=== PATIENT | male | born 1985 | race Hispanic/Latino ===

== ENCOUNTER 2018-08-06 01:01 | Emergency (ER) | payer SELFPAY ==
[2018-08-06 01:15] VITALS: BP 144/95
--- NOTE | 2018-08-06 02:13 | XRay Report ---
PROCEDURE: XR FOOT 2V RT TECHNIQUE: Right foot radiographs, AP and lateral views. HISTORY: pain/swelling COMPARISONS: None . FINDINGS: Fracture (s) and/or Dislocation(s): None . Alignment: Normal . Joint space(s): Normal . Soft tissues: Normal . Bone mineralization: Normal . Foreign bodies: None . Calcaneal spurring: None . IMPRESSION: Normal Examination . This document is electronically signed by Aime Morrow MD., August 06 2018 02:11:26 AM ET
--- NOTE | 2018-08-06 02:14 | XRay Report ---
PROCEDURE: ANKLE, 2 VIEWS, RIGHT TECHNIQUE: RIGHT ankle radiographs, AP and lateral views. CPT 67880 HISTORY: Trauma COMPARISONS: None . FINDINGS: Fracture (s) and/or Dislocation(s): None . Alignment: Normal . Joint space(s): Normal . Soft tissues: Normal . Bone mineralization: Normal . Foreign bodies: None . Calcaneal spurring: None . IMPRESSION: Normal Examination . This document is electronically signed by Aime Morrow MD., August 06 2018 02:12:21 AM ET
== END 2018-08-06 04:25 | disposition left against medical advice (07) ==
LOC: ED 01:01
DX: M79.671 Pain in right foot (principal); Z53.21 Procedure and treatment not carried out due to patient leaving prior to being seen by health care provider